=== PATIENT | female | born 1965 | race American Indian/Alaskan Native ===

== ENCOUNTER 2016-06-04 05:41 | Emergency (ER) | payer OTHER ==
[2016-06-04 06:59] LABS: Basophils % (Auto) 1.3 % (0.0-1.8); Eosinophils % (Auto) 1.9 % (0.0-4.3); Hematocrit 35.6 % (30.3-42.9); Hemoglobin 11.9 gm/dl (10.1-14.3); Mean Corpuscular HGB Conc 34 % (30-34); Mean Corpuscular Hemoglobin 30 pg (28-32); Mean Corpuscular Volume 90 fl (79-97); Platelet Count 249 K/mm3 (140-440); Red Blood Count 3.98 M/mm3 (3.65-5.03); Red Cell Distribution Width 14.8 % (13.2-15.2); White Blood Count 7.9 K/mm3 (4.5-11.0)
[2016-06-04 07:11] LABS: Anion Gap 18 mmol/L; BUN/Creatinine Ratio 16.25; Blood Urea Nitrogen 13 mg/dL (7-17); Calcium 9.2 mg/dL (8.4-10.2); Carbon Dioxide 24 mmol/L (22-30); Chloride 104.2 mmol/L (98-107); Glucose 94 mg/dL (65-100); Potassium 4.1 mmol/L (3.6-5.0); Sodium 142 mmol/L (137-145)
--- NOTE | 2016-06-04 11:06 | Emergency Department Report ---
ED General Adult HPI - General Chief complaint: Arrhythmia/Palpitations Stated complaint: PALPALTATIONS/ANXIETY Time Seen by Provider: 06/04/16 10:54 Source: patient, EMS (ems notes not available at time of chart dictation), RN notes reviewed Mode of arrival: Ambulatory Limitations: No Limitations - History of Present Illness Initial comments: This is a 51-year-old female. She is previously unknown to me. She was seen Dr. Hill, but stopped secondary to insurance issues. Patient has a past medical history of hypothyroidism and hypertension. The patient presents to the ER complaining of palpitations and shortness of breath. These have been going on for the past 3-4 months. Symptoms worsened when the patient is sleeping. During the day, the patient describes unlimited exercise tolerance. There is no chest pain. There is no shortness of breath with physical exertion. There is no leg pain or leg swelling. No recent trips greater than 4 hours. No recent hospital admissions. No hematemesis. No bright red blood per rectum. Occasionally snores at night. no cocaine use -: Gradual, month(s) Severity scale (0 -10): 0 Consistency: intermittent Improves with: none Worsens with: none Associated Symptoms: denies: confusion, chest pain, cough, diaphoresis, fever/ chills, loss of appetite, malaise, nausea/vomiting, rash, syncope, weakness - Related Data Previous Rx's Medication Instructions Recorded Last Taken Type Levothyroxine [Synthroid] 125 mcg PO QAM #30 tablet 06/04/16 Unknown Rx Allergies Allergy/AdvReac Type Severity Reaction Status Date / Time No Known Allergies Allergy Unverified 06/04/16 05:44 ED Review of Systems ROS: Stated complaint: PALPALTATIONS/ANXIETY Other details as noted in HPI Constitutional: see HPI ENT: as per HPI Respiratory: see HPI Cardiovascular: as per HPI, palpitations Gastrointestinal: as per HPI Genitourinary: as per HPI Musculoskeletal: as per HPI Skin: as per HPI Neurological: as per HPI Psychiatric: anxiety ED Past Medical Hx - Past Medical History Previous Medical History?: Yes Hx Hypertension: Yes Additional medical history: hypothyroidism - Surgical History Past Surgical History?: No - Social History Smoking Status: Never Smoker Substance Use Type: None - Medications Home Medications: Home Medications Medication Instructions Recorded Confirmed Last Taken Type Levothyroxine [Synthroid] 125 mcg PO QAM #30 tablet 06/04/16 Unknown Rx ED Physical Exam - General Limitations: No Limitations General appearance: alert, in no apparent distress - Head Head exam: Present: atraumatic, normocephalic - Eye Eye exam: Present: normal appearance, EOMI. Absent: nystagmus - ENT ENT exam: Present: normal exam, normal orophraynx, mucous membranes moist, normal external ear exam - Neck Neck exam: Present: normal inspection, full ROM. Absent: tenderness, meningismus - Respiratory Respiratory exam: Present: normal lung sounds bilaterally. Absent: respiratory distress, wheezes, rales, rhonchi, stridor, decreased breath sounds - Cardiovascular Cardiovascular Exam: Present: regular rate, normal rhythm, normal heart sounds. Absent: bradycardia, tachycardia, irregular rhythm, systolic murmur, diastolic murmur, rubs, gallop - GI/Abdominal GI/Abdominal exam: Present: soft, normal bowel sounds. Absent: distended, tenderness, guarding, rebound, rigid, pulsatile mass - Extremities Exam Extremities exam: Present: normal inspection, full ROM, normal capillary refill. Absent: tenderness, pedal edema, joint swelling, calf tenderness - Back Exam Back exam: Present: normal inspection, full ROM. Absent: tenderness, CVA tenderness (R), CVA tenderness (L), muscle spasm, paraspinal tenderness, vertebral tenderness - Neurological Exam Neurological exam: Present: alert, oriented X3, normal gait, other (Extraocular movements intact. Tongue midline. No facial droop. Facial sensation intact to light touch in the V1, V2, V3 distribution bilaterally. 5 and 5 strength in 4 extremities.. Sensation is intact to light touch in 4 extremities.). Absent : motor sensory deficit - Psychiatric Psychiatric exam: Present: normal affect, normal mood - Skin Skin exam: Present: warm, dry, intact, normal color. Absent: rash ED Course Vital Signs 06/04/16 06/04/16 06/04/16 05:47 09:18 12:29 Temperature 98.6 F 98.4 F 98.6 F Pulse Rate 78 76 76 Respiratory 18 16 18 Rate Blood Pressure 141/102 Blood Pressure 147/65 142/66 [Left] O2 Sat by Pulse 98 99 99 Oximetry - Reevaluation(s) Reevaluation #1: 06/04/16 12:27 Differential diagnosis: Hypothyroidism, pneumonia, acute coronary syndrome, obstructive sleep apnea, obesity hypoventilation syndrome Assessment and plan: 51-year-old female with months of palpitations, and nocturnal shortness of breath. She is afebrile with reassuring vital signs. No pulmonary embolus or DVT risk factors, low risk by well's criteria, low risk by BRITTANIE score, low risk by heart score. She is found to be markedly hypothyroid. This is not consistent with her complaint of palpitations. We will give her a 1 month supply of her Synthroid prescription. She was seen by case management, and given an affordable prescription card. Her EKG is morphologically abnormal, but unchanged serially. Patient is instructed as to the importance of close outpatient follow-up with primary care and cardiology. Given the patient's symptoms have been going on for months, and that her vital signs are essentially unremarkable, I see no objective indication to admit the patient to the hospital at this time. Certainly as her symptoms have been going on for months, I do not believe she will benefit from acute coronary syndrome risk stratification. She will be discharged at this time, and instructed to follow up. ED Medical Decision Making - Lab Data Result diagrams: 06/04/16 06:41 06/04/16 06:41 Vital Signs 06/04/16 06/04/16 05:47 09:18 Temperature 98.6 F 98.4 F Pulse Rate 78 76 Respiratory 18 16 Rate Blood Pressure 141/102 Blood Pressure 147/65 [Left] O2 Sat by Pulse 98 99 Oximetry Labs 06/04/16 06/04/16 06/04/16 06:41 06:41 08:54 WBC 7.9 RBC 3.98 Hgb 11.9 Hct 35.6 MCV 90 MCH 30 MCHC 34 RDW 14.8 Plt Count 249 Lymph % (Auto) 19.6 [place] % (Auto) 5.9 Eos % (Auto) 1.9 Baso % (Auto) 1.3 Lymph # 1.6 [place] # 0.5 Eos # 0.1 Baso # 0.1 Seg Neutrophils % 71.3 H Seg Neutrophils # 5.7 Sodium 142 Potassium 4.1 Chloride 104.2 Carbon Dioxide 24 Anion Gap 18 BUN 13 Creatinine 0.8 Estimated GFR > 60 BUN/Creatinine Ratio 16.25 Glucose 94 Calcium 9.2 Troponin T < 0.010 < 0.010 TSH 06/04/16 11:16 WBC RBC Hgb Hct MCV MCH MCHC RDW Plt Count Lymph % (Auto) [place] % (Auto) Eos % (Auto) Baso % (Auto) Lymph # [place] # Eos # Baso # Seg Neutrophils % Seg Neutrophils # Sodium Potassium Chloride Carbon Dioxide Anion Gap BUN Creatinine Estimated GFR BUN/Creatinine Ratio Glucose Calcium Troponin T TSH 43.580 H - EKG Data 06/04/16 12:29 EKG #1 demonstrates normal sinus, 74 bpm, normal intervals, normal axis, flattened T waves inferiorly, biphasic T-wave in V2, not morphologically consistent with STEMI. EKG #2 demonstrates normal sinus, 69 bpm, normal intervals, normal axis, not morphologically consistent with STEMI, unchanged from prior EKG. - Radiology Data Radiology results: report reviewed, image reviewed xr chest with no acute disease Critical care attestation.: If time is entered above; I have spent that time in minutes in the direct care of this critically ill patient, excluding procedure time. ED Disposition Clinical Impression: Hypothyroidism Disposition: DISCHARGED TO HOME OR SELFCARE Is pt being admited?: No Does the pt Need Aspirin: No Condition: Stable Instructions: Palpitations (ED) Additional Instructions: Take the Synthroid medication as directed. Follow-up with the primary care doctor or provider relations specialist within the next week to [address] Adhikari is a local primary care doctor. Dr. Marc is a local provider relations specialist. Return to the ER right away with new pain, worsened pain, migration of pain, severe shortness of breath, intractable nausea or vomiting, inability to tolerate liquid feeds. Prescriptions: Levothyroxine [Synthroid] 125 mcg PO QAM #30 tablet Referrals: PRIMARY MD BRENT [Primary Care Provider] - 3-5 Days SHEBA ADHIKARI MD [Staff Physician] - 3-5 Days JUAN MARC MD [Staff Physician] - 3-5 Days
--- NOTE | 2016-06-04 12:17 | XRay Report ---
ROUTINE CHEST, TWO VIEWS: HISTORY: Dyspnea. The trachea, heart, mediastinal contour, lung rudd and bony thorax are unremarkable. IMPRESSION: No acute cardiopulmonary process.
[2016-06-04 12:30] VITALS: BP 142/66
== END 2016-06-04 13:05 | disposition home or self-care (01) ==
LOC: ED 05:41
DX: E03.9 Hypothyroidism, unspecified (principal); I10 Essential (primary) hypertension
CPT/HCPCS: 36415; 71020; 80048; 84443; 84484; 85025; 93005; 93010; 99285